=== PATIENT | female | born 1965 | race Caucasian/White ===

== ENCOUNTER 2018-05-26 20:08 | Emergency (ER) | payer MEDICAID ==
[~2018-05-26] VITALS: Ht 162.6 cm; Wt 112.5 kg
[2018-05-26 20:25] VITALS: Ht 162.6 cm; Wt 112.5 kg
[2018-05-26 22:04] VITALS: BP 128/69
== END 2018-05-26 22:04 | disposition home or self-care (01) ==
LOC: ED 20:08
DX: B35.2 Tinea manuum (principal)

== ENCOUNTER 2018-07-16 12:58 | Emergency (ER) | payer MEDICAID ==
[~2018-07-16] VITALS: Ht 165.1 cm; Wt 112.5 kg
[2018-07-16 13:14] VITALS: Ht 165.1 cm; Wt 112.5 kg
[2018-07-16 14:05] LABS: BASOPHIL % 0.9 % (0-2); PLATELET COUNT 383 x10^3mcL (130-400); RED CELL DISTRIBUTION WIDTH 14.6 % (11.5-14.5)
[2018-07-16 15:05] VITALS: BP 120/71
== END 2018-07-16 15:05 | disposition home or self-care (01) ==
LOC: ED 12:58
PROVIDERS: Emergency Medicine
DX: N93.8 Other specified abnormal uterine and vaginal bleeding (principal); K21.9 Gastro-esophageal reflux disease without esophagitis
CPT/HCPCS: 36415; J1885

== ENCOUNTER 2018-07-18 08:54 | Emergency (ER) | payer MEDICAID ==
[~2018-07-18] VITALS: Ht 165.1 cm; Wt 112.7 kg
[2018-07-18 09:05] VITALS: BP 129/82; Ht 165.1 cm; Wt 112.7 kg
== END 2018-07-18 10:05 | disposition home or self-care (01) ==
LOC: ED 08:54
DX: S80.871D Other superficial bite, right lower leg, subsequent encounter (principal); K21.9 Gastro-esophageal reflux disease without esophagitis; E66.01 Morbid (severe) obesity due to excess calories; Z86.2 Personal history of diseases of the blood and blood-forming organs and certain disorders involving the immune mechanism; Z68.41 Body mass index [BMI] 40.0-44.9, adult; W57.XXXD Bitten or stung by nonvenomous insect and other nonvenomous arthropods, subsequent encounter
CPT/HCPCS: 82962

== ENCOUNTER 2019-01-31 09:01 | Emergency (ER) | payer OTHER, MEDICAID | END 2019-01-31 09:49 | disposition home or self-care (01) | LOC: ED 09:01 ==

== ENCOUNTER 2019-04-08 09:49 | Emergency (ER) | payer OTHER ==
[~2019-04-08] VITALS: Ht 165.1 cm; Wt 81.6 kg
[2019-04-08 09:56] VITALS: Ht 165.1 cm; Wt 81.6 kg
[2019-04-08 13:10] VITALS: BP 123/62
== END 2019-04-08 13:10 | disposition home or self-care (01) ==
LOC: ED 09:49
DX: S82.861A Displaced Maisonneuve's fracture of right leg, initial encounter for closed fracture (principal); S82.434A Nondisplaced oblique fracture of shaft of right fibula, initial encounter for closed fracture; S82.841A Displaced bimalleolar fracture of right lower leg, initial encounter for closed fracture; K21.9 Gastro-esophageal reflux disease without esophagitis; J45.909 Unspecified asthma, uncomplicated; W18.30XA Fall on same level, unspecified, initial encounter; Y93.89 Activity, other specified; Y92.89 Other specified places as the place of occurrence of the external cause; Y99.8 Other external cause status
CPT/HCPCS: J2270

== ENCOUNTER 2019-08-06 13:36 | Emergency (ER) | payer OTHER ==
[~2019-08-06] VITALS: Ht 165.1 cm; Wt 119.7 kg
[2019-08-06 17:07] VITALS: BP 130/76
== END 2019-08-06 17:07 | disposition home or self-care (01) ==
LOC: ED 13:36
DX: B02.9 Zoster without complications (principal); J45.909 Unspecified asthma, uncomplicated; K21.9 Gastro-esophageal reflux disease without esophagitis
CPT/HCPCS: J1885

== ENCOUNTER 2019-12-31 12:00 | Emergency (ER) | payer OTHER ==
[~2019-12-31] VITALS: Ht 165.1 cm; Wt 75.3 kg
[2019-12-31 12:08] VITALS: Ht 165.1 cm; Wt 75.3 kg
[2019-12-31 12:58] VITALS: BP 149/81
== END 2019-12-31 12:58 | disposition home or self-care (01) ==
LOC: ED 12:00
DX: R42 Dizziness and giddiness (principal); S16.1XXA Strain of muscle, fascia and tendon at neck level, initial encounter; G44.209 Tension-type headache, unspecified, not intractable; J45.909 Unspecified asthma, uncomplicated; K21.9 Gastro-esophageal reflux disease without esophagitis; Z86.2 Personal history of diseases of the blood and blood-forming organs and certain disorders involving the immune mechanism; Z98.890 Other specified postprocedural states; X58.XXXA Exposure to other specified factors, initial encounter; Y93.89 Activity, other specified; Y92.89 Other specified places as the place of occurrence of the external cause; Y99.8 Other external cause status
CPT/HCPCS: J8597

== ENCOUNTER 2020-04-22 03:57 | Emergency (ER) | payer OTHER ==
[~2020-04-22] VITALS: Ht 165.1 cm; Wt 81.6 kg
[2020-04-22 03:59] VITALS: BP 136/89; Ht 165.1 cm; Wt 81.6 kg
== END 2020-04-22 04:30 | disposition other institution (70) ==
LOC: ED 03:57
DX: Z02.89 Encounter for other administrative examinations (principal)

== ENCOUNTER → 2020-07-24 | Emergency (ER) | payer OTHER ==
[~2020-07-24] VITALS: Ht 165.1 cm; Wt 81.6 kg
[2020-07-24 12:32] VITALS: BP 109/71; Ht 165.1 cm; Wt 81.6 kg
== END ==
LOC: ED 12:30
DX: J40 Bronchitis, not specified as acute or chronic (principal); K21.9 Gastro-esophageal reflux disease without esophagitis; Z86.2 Personal history of diseases of the blood and blood-forming organs and certain disorders involving the immune mechanism; Z76.0 Encounter for issue of repeat prescription